=== PATIENT | female | born 1990 | race African-American/Black ===

== ENCOUNTER 2017-09-18 06:30 | Emergency (ER) | payer MEDICAID, OTHER ==
[~2017-09-18] VITALS: Ht 144.8 cm; Wt 92.0 kg
[~2017-09-18 06:30] MED LIST: EPIP0.3I IM; PRED20 PO; Z.0.NO CURRENT MEDS
[2017-09-18 06:33] VITALS: BP 114/63; PULSE 91; RESP 16; TEMP 98.4; O2SAT 100
[2017-09-18] MEDS ORDERED: IBUP-232 PO (07:39)
[2017-09-18] MEDS ORDERED: ZOFR4TAB3 SL (07:39)
--- NOTE | 2017-09-18 07:40 | PD ---
HPI Chief Complaint: Cold / Flu Symptoms Time Seen by Provider: 07:35 Travel History International Travel<30 days: No Contact w/Intl Traveler<30days: No Traveled to known affect area: No History of Present Illness HPI 27-year-old female patient presents to the ER today with 3 days history of cough , sore throat, earaches, nasal congestion, fevers, body aches, nausea and vomiting, and malaise. She states that her son had similar symptoms and had been diagnosed with influenza, had positive flu test yesterday. She denies any chest pains, shortness of breath, or other issues. Modifying Factors: None Associated Signs & Symptoms: Cough, body aches, sore throat, nausea and vomiting , malaise, flulike symptoms Risk Factors: Sick contact with flu PFSH Past Medical History Medical History: Denies Significant Hx Asthma: Yes Depression: Yes Cancer: No Cardiovascular Problems: No Diabetes: No Diminished Hearing: No Neurologic: No Psychiatric: No Immunizations Current: Yes Seizures: No Thyroid Disease: No Ulcer: No ?: Not LMP: 09/18/17 : 3 Para: 3 Past Surgical History Section: Yes (3) Other Surgery: No Social History Alcohol Use: No Tobacco Use: No Substance Use: No Allergies-Medications (Allergen,Severity, Reaction): Coded Allergies: No Known Allergies (Verified Adverse Reaction, Unknown, 09/18/17) Reported Meds & Prescriptions Reported Meds & Active Scripts Active No Active Prescriptions or Reported Medications Review of Systems Except as stated in HPI: all other systems reviewed are Neg Physical Exam Narrative GENERAL: Well-developed young -[place] female patient currently in mild distress. Awake and oriented 3. SKIN: Focused skin assessment warm/dry. HEAD: Atraumatic. Normocephalic. EYES: Pupils equal and round. No scleral icterus. No injection or drainage. ENT: Mucosa pink and moist. Mild erythema with no exudates. No uvular edema. No uvular, palatal, or tonsillar deviation. Airway patent. EARS: Bilateral pinnae and external canals appear within normal limits. Bilateral tympanic membranes without erythema, dullness or perforation. NECK: Trachea midline. No JVD. Supple. CARDIOVASCULAR: Regular rate and rhythm. No murmur appreciated. RESPIRATORY: No accessory muscle use. Clear to auscultation. Breath sounds equal bilaterally. GASTROINTESTINAL: Abdomen soft, non-tender, nondistended. Hepatic and splenic margins not palpable. MUSCULOSKELETAL: No obvious deformities. No clubbing. No cyanosis. No edema. NEUROLOGICAL: Awake and alert. No obvious cranial nerve deficits. Motor grossly within normal limits. Normal speech. PSYCHIATRIC: Appropriate mood and affect; insight and judgment normal. Data Data Last Documented VS Vital Signs Date Time Temp Pulse Resp B/P (MAP) Pulse Ox O2 Delivery O2 Flow Rate FiO2 09/18/17 06:33 98.4 91 16 114/63 (80) 100 Orders Orders Influenzae A/B Antigen (09/18/17 07:23) Ed Urine Pregnancytest Poc (09/18/17 07:23) MDM Medical Decision Making Medical Screen Exam Complete: Yes Emergency Medical Condition: Yes Medical Record Reviewed: Yes Differential Diagnosis A viral syndrome versus URI versus influenza Narrative Course Considering her symptoms and recent contact with something he would confirm flu , I suspect that she has influenza. At this point, I would treat her symptomatically. She is beyond the point of needing Tamiflu since symptoms of been going on for at least 3 days. She should return for any worsening in symptoms as needed. Stay hydrated. The plan was discussed with her and she states understanding. Diagnosis Primary Impression: Influenza Med/Other Pt SpecificInfo: Prescription(s) given Scripts Ondansetron Odt (Zofran Odt) 4 Mg Tab 4 MG SL Q6HR Y for Nausea/Vomiting, #5 TAB 0 Refills Prov: Savanah Jay MD 09/18/17 Ibuprofen (Ibuprofen) 600 Mg Tab 600 MG PO Q6H Y for PAIN, #20 TAB 0 Refills Prov: Savanah Jay MD 09/18/17 Disposition: 01 DISCHARGE HOME Condition: Stable Savanah Jay MD Sep 18, 2017 07:40
== END 2017-09-18 08:04 | disposition home or self-care (01) ==
LOC: NEPC 06:30
DX: J11.1 Influenza due to unidentified influenza virus with other respiratory manifestations (principal); J45.909 Unspecified asthma, uncomplicated; F32.9 Major depressive disorder, single episode, unspecified
CPT/HCPCS: 87804; 99283

== ENCOUNTER 2017-11-04 12:44 | Emergency (ER) | payer MEDICAID ==
[~2017-11-04 12:44] MED LIST changes: -EPIP0.3I IM; +IBUP-232 PO; -PRED20 PO; -Z.0.NO CURRENT MEDS; +ZOFR4TAB3 SL
== END 2017-11-04 13:15 | disposition left against medical advice (07) ==
LOC: NED 12:44
DX: R07.9 Chest pain, unspecified (principal); Z53.21 Procedure and treatment not carried out due to patient leaving prior to being seen by health care provider
CPT/HCPCS: 99281